=== PATIENT | female | born 2000 | race Caucasian/White ===

== ENCOUNTER 2019-04-06 19:39 | Emergency (ER) | payer OTHER ==
[~2019-04-06] VITALS: Ht 149.9 cm; Wt 47.6 kg
--- NOTE | 2019-04-06 19:42 | NUR ---
PT BIBA BLS TO ER BED 10
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
[2019-04-06 19:43] VITALS: BP 141/96
--- NOTE | 2019-04-06 20:00 | NUR ---
PT IN BED RESTING WITH EYES OPEN. STATES PAIN 8/. DR PRIETO NOTIFIED. NO ALOC. CONTINUE TO MONITOR.
--- NOTE | 2019-04-06 21:00 | NUR ---
PT IN BED RESTING WITH EYES OPEN. STATES PAIN 8/. DR PRIETO NOTIFIED OF CONTINUED PAIN. NO ALOC. CONTINUE TO MONITOR.
--- NOTE | 2019-04-06 21:10 | NUR ---
PT AMBULATED TO RESTROOM. GAIT STEADY BUT DIFFICULT D/T PAIN. ER MD AWARE. CONTINUE TO MONITOR.
--- NOTE | 2019-04-06 21:24 | NUR ---
ER MD PRIETO AT BEDSIDE
[2019-04-06] MEDS ORDERED: IBUPROFEN 800 MG TAB PO ONE (21:55)
--- NOTE | 2019-04-06 22:00 | NUR ---
PT IN BED RESTING. MOTHER AT BEDSIDE. PAIN CONTINUES 05/05. CONTINUE TO MONITOR.
[2019-04-06 22:05] LABS: BASOPHILS # (AUTO) 0.1 K/uL (0.00-0.22); BASOPHILS % (AUTO) 0.5 % (0.0-2.0); EOSINOPHILS % (AUTO) 0.5 % (0.0-4.0); HEMATOCRIT 38.9 % (36-48); HEMOGLOBIN 12.7 g/dL (12.0-16.0); LYMPHOCYTES # (AUTO) 2.7 K/uL (2.5-16.5); LYMPHOCYTES % (AUTO) 28.6 % (20.5-51.1); MEAN CORPUSCULAR HEMOGLOBIN 31 pg (27-31); MEAN CORPUSCULAR HGB CONC 33 g/dL (33-37); MEAN CORPUSCULAR VOLUME 94.2 fL (80-94); MONOCYTES # (AUTO) 0.7 K/uL (0.8-1.0); MONOCYTES % (AUTO) 7.4 % (1.7-9.3); PLATELET COUNT (AUTO) 242 K/uL (140-450); RED BLOOD CELL COUNT(AUTO) 4.13 MIL/uL (4.20-5.40); RED CELL DISTRIBUTION WIDTH 14.3 % (11.6-13.7); WHITE BLOOD COUNT (AUTO) 9.5 K/uL (4.5-11.0)
[2019-04-06 22:18] LABS: ANION GAP 15.3 (8-16); CARBON DIOXIDE 25.2 mmol/L (21-32); CREATININE 0.7 mg/dL (0.6-1.3); POTASSIUM 3.5 mmol/L (3.5-5.1)
[2019-04-06 22:24] LABS: ALBUMIN 3.8 g/dL (3.4-5.0); TOTAL BILIRUBIN 0.8 mg/dL (0.0-1.0)
--- NOTE | 2019-04-06 22:35 | NUR ---
PT STATES PAIN UNRELIEVED WITH IBUPROFEN. 05/[address] PRATT NOTIFIED. CONTINUE TO MONITOR.
--- NOTE | 2019-04-06 22:37 | NUR ---
PT ESCORTED TO XRAY BY NATHALIE VIA [facility].
[2019-04-06] MEDS ORDERED: fentaNYL 0.05 MG/ML VIAL IVP ONE (23:10)
--- NOTE | 2019-04-07 01:19 | NUR ---
URINE RE-COLLECTED AND SENT TO LAB. CONTINUE TO MONITOR.
[2019-04-07 02:00] VITALS: BP 110/63
--- NOTE | 2019-04-07 02:00 | NUR ---
Patient discharged with v/s stable. Written and verbal after care instructions given and explained. Patient verbalized understanding. Ambulatory with steady gait. All questions addressed prior to discharge. Advised to follow up with PMD.
[2019-04-07 02:38] LABS: APPEARANCE,URINE CLEAR (CLEAR); BILIRUBIN,URINE NEGATIVE (NEGATIVE); BLOOD, URINE NEGATIVE (NEGATIVE); COLOR,URINE YELLOW (YELLOW); LEUKOCYTE ESTERASE ,URINE NEGATIVE (NEGATIVE); NITRITE, URINE NEGATIVE (NEGATIVE); PH,URINE 6.5 (5.0-9.0); UGLUCOSE NEGATIVE (NEGATIVE)
== END 2019-04-07 02:00 | disposition home or self-care (01) ==
LOC: MED 19:39
DX: K52.9 Noninfective gastroenteritis and colitis, unspecified (principal); R07.89 Other chest pain; M54.2 Cervicalgia; M25.511 Pain in right shoulder; M25.521 Pain in right elbow; M25.571 Pain in right ankle and joints of right foot; M25.572 Pain in left ankle and joints of left foot; M54.6 Pain in thoracic spine; M54.5 Low back pain; M25.551 Pain in right hip
CPT/HCPCS: 36415; 70450; 71045; 71270; 72125; 72128; 72131; 73020; 73080; 73521; 73562; 73590; 73610; 74178; 80053; 81003; 81025; 85025; 96374; 99284; J3010; Q0092; Q9967

== ENCOUNTER 2021-05-08 22:48 | Emergency (ER) | payer OTHER ==
[~2021-05-08] VITALS: Ht 149.9 cm; Wt 49.4 kg
[2021-05-08 23:00] VITALS: BP 138/83
[2021-05-08] MEDS ORDERED: FAMOTIDINE 20 MG TAB PO ONE (23:20)
[2021-05-08] MEDS ORDERED: ALUMINUM HYD/MAG/SIMETHICONE 30 ML UDC PO ONE (23:20)
--- NOTE | 2021-05-08 23:30 | NUR ---
PT LABS BEING DRAWN IN [facility].
--- NOTE | 2021-05-08 23:40 | NUR ---
PT AMBULATED TO LOBBY.
[2021-05-08 23:44] LABS: BASOPHILS % (AUTO) 0.4 % (0.0-2.0); EOSINOPHILS # (AUTO) 0.1 K/uL (0-0.4); EOSINOPHILS % (AUTO) 1.5 % (0.0-4.0); HEMATOCRIT 38.2 % (36-48); HEMOGLOBIN 12.9 g/dL (12.0-16.0); LYMPHOCYTES # (AUTO) 3.4 K/uL (2.5-16.5); LYMPHOCYTES % (AUTO) 38.1 % (20.5-51.1); MEAN CORPUSCULAR HEMOGLOBIN 32 pg (27-31); MEAN CORPUSCULAR HGB CONC 34 g/dL (33-37); MEAN CORPUSCULAR VOLUME 94.5 fL (80-94); MONOCYTES # (AUTO) 0.6 K/uL (0.8-1.0); MONOCYTES % (AUTO) 7.4 % (1.7-9.3); NEUTROPHILS # (AUTO) 4.7 K/uL (1.8-7.7); NEUTROPHILS % (AUTO) 52.6 % (42.2-75.2); PLATELET COUNT (AUTO) 220 K/uL (140-450); RED BLOOD CELL COUNT(AUTO) 4.04 MIL/uL (4.20-5.40); RED CELL DISTRIBUTION WIDTH 13.4 % (11.6-13.7); WHITE BLOOD COUNT (AUTO) 8.8 K/uL (4.8-10.8)
--- NOTE | 2021-05-08 23:50 | NUR ---
MEDICATIONS ADMINISTERED. PT SITTING OUTSIDE WITH SIGNIFICANT OTHER. ALL NEEDS MET AT THIS TIME.
[2021-05-09 00:09] LABS: ALBUMIN 3.7 g/dL (3.4-5.0); ANION GAP 11.6 (8-16); CARBON DIOXIDE 31.8 mmol/L (21-32); CREATININE 0.9 mg/dL (0.6-1.3); POTASSIUM 3.4 mmol/L (3.5-5.1); TOTAL BILIRUBIN 1.1 mg/dL (0.0-1.0)
--- NOTE | 2021-05-09 01:15 | NUR ---
PT AMBULATED TO ER BED 2
--- NOTE | 2021-05-09 01:20 | NUR ---
PATIENT BIB SELF FOR C/O EPIGASTRIC PAIN STARTING X 4 HOURS AGO. PATIENT STATES PAIN PROVOKED AFTER EATING DINNER. PER PATIENT DENIES HAVING SPICY OF GREASY MEAL. PATIENT DENIES PAIN RADIATING TO OTHER LOCATIONS. PATIENT STATES NAUSEA PRESENT BUT DENIES V/D. PATIENT STATES HAS A HX OF EPIGASTRIC PAIN "FOR YEARS, BUT TODAY IT DIDN'T GO AWAY." MED HX: FAMILY HX OF GALLSTONES. ALLERGIES: NKA
--- NOTE | 2021-05-09 01:28 | NUR ---
ERMD AT BEDSIDE FOR MEDICAL EVALUATION AND PERFORMING US AT BEDSIDE. PATIENT TOLERATING WELL.
[2021-05-09] MEDS ORDERED: FAMO-90 PO (01:32)
[2021-05-09 01:46] VITALS: BP 128/78
== END 2021-05-09 01:46 | disposition home or self-care (01) ==
LOC: MED 22:48
DX: K80.50 Calculus of bile duct without cholangitis or cholecystitis without obstruction (principal); R11.10 Vomiting, unspecified
CPT/HCPCS: 36415; 80053; 81002; 81025; 83690; 85025; 99283